=== PATIENT | female | born 1985 | race Caucasian/White ===

== ENCOUNTER → 2016-07-25 | Outpatient (CLI) | payer BC ==
[~2016-07-25] MED LIST: ACET325T38 PO; AMOX500C5 PO; AMOX875T2 PO; CEPH-507 PO; CEPH500T PO; CYCL-265 PO; DOXY100C2 PO; FAMO40TA72 PO; FERR27TA PO; FERR325T5 PO; FERR55TA PO; HYDR-3702 PO; HYDR-3719 PO; HYDR-3754 PO; IBP200T PO; NAPR550T PO; NITR100C3 PO; ONDA4TAB8 PO; ONDN4T PO; PRM25T PO; SULF-228 PO; SULF1TAB34 PO; TRAM-25 PO; VITAMIN B6; [UNRECOGNIZED DRUG - CODE] PO
--- NOTE | 2016-07-25 16:56 | Diagnostic Imaging Report ---
EXAMINATION: Left foot at 03:19 p.m. INDICATION: Foot pain. FINDINGS: Three views were obtained. There is no fracture, dislocation, or acute bony abnormality evident. There is a prominent calcaneal spur. Soft tissues are unremarkable. IMPRESSION: There is no evidence for an acute bony abnormality. Dictated by: Dictated on workstation # [id number]
== END ==
LOC: RAD 14:59
PROVIDERS: ATTEND Nurse Practitioner Family
DX: M79.672 Pain in left foot (principal)